=== PATIENT | male | born 1955 | race Caucasian/White ===

== ENCOUNTER 2016-06-23 13:37 | Inpatient (IN) | payer OTHER ==
[~2016-06-23] VITALS: Ht 175.3 cm; Wt 84.1 kg
[2016-06-23 14:12] LABS: HEMOGLOBIN 15.7 gm/dl (14.0-17.5); RED BLOOD COUNT 5.05 M/UL (4.20-5.50); WHITE BLOOD COUNT 7.9 K/UL (4.5-11.0)
[2016-06-23 14:43] LABS: BUN/CREATININE RATIO 14 (0-10)
[2016-06-23] MEDS ORDERED: COMBIVENT0.074 GM/I INH (18:18)
[2016-06-23] MEDS ORDERED: TRAMADOL HCL50 MG PO (18:18)
[2016-06-23] MEDS ORDERED: PLAVIX 75 MG TA75 MG PO (18:19)
[2016-06-23] MEDS ORDERED: NEURONTIN 400400 MG PO (18:19)
[2016-06-23] MEDS ORDERED: LIPITOR TAB 2020 MG PO (18:19)
[2016-06-23] MEDS ORDERED: FENOFIBRATE200 MG PO (18:21)
[2016-06-23] MEDS ORDERED: CARDIZEM120 MG PO (18:21)
[2016-06-23] MEDS ORDERED: LISINOPRIL20 MG PO (18:22)
[2016-06-23] MEDS ORDERED: IMDUR ER TAB 6060 MG PO (18:22)
[2016-06-23] MEDS ORDERED: PROTONIX40 MG PO (18:23)
[2016-06-23] MEDS ORDERED: CYMBALTA60 MG PO (18:24)
[2016-06-23] MEDS ORDERED: INVOKANA100 MG PO (18:24)
[2016-06-23] MEDS ORDERED: CLARITIN 10MG T10 MG PO (18:25)
[2016-06-23] MEDS ORDERED: LANTUS100 UNIT/1 SQ (18:25)
[2016-06-23] MEDS ORDERED: TOPROL XL 50 MG50 MG PO (18:26)
[2016-06-23] MEDS ORDERED: REMERON30 MG PO (18:26)
[2016-06-23] MEDS ORDERED: NITRO-DUR 0.4 MG1 EA TD (18:27)
[2016-06-23] MEDS ORDERED: LORAZEPAM1 MG PO (18:28)
[2016-06-23] MEDS ORDERED: MECLIZINE HCL12.5 MG PO (18:28)
[2016-06-24 02:35] LABS: HEMOGLOBIN 14.8 gm/dl (14.0-17.5); RED BLOOD COUNT 4.72 M/UL (4.20-5.50); WHITE BLOOD COUNT 7.5 K/UL (4.5-11.0)
[2016-06-24 03:26] LABS: BUN/CREATININE RATIO 19 (0-10)
[2016-06-24 16:52] LABS: RED BLOOD COUNT 4.85 M/UL (4.20-5.50); WHITE BLOOD COUNT 8.6 K/UL (4.5-11.0)
[2016-06-24 17:14] LABS: BUN/CREATININE RATIO 18 (0-10)
[2016-06-25 04:14] LABS: HEMOGLOBIN 15.3 gm/dl (14.0-17.5); RED BLOOD COUNT 4.94 M/UL (4.20-5.50); WHITE BLOOD COUNT 9.2 K/UL (4.5-11.0)
[2016-06-25 04:37] LABS: BUN/CREATININE RATIO 20 (0-10)
[2016-06-25] MEDS ORDERED: ASPIR 8181 MG PO (09:12)
[2016-06-25] MEDS ORDERED: BRILINTA90 MG PO (09:19)
[2016-06-25] MEDS ORDERED: ZESTRIL20 MG PO (11:01)
[2016-08-18] MEDS ORDERED: LIORESAL TAB 1010 MG PO (07:55)
[2016-08-18] MEDS ORDERED: PLAVIX75 MG PO (07:56)
[2016-08-18] MEDS ORDERED: BUSPAR 5MG TABLE5 MG PO (07:56)
[2016-08-18] MEDS ORDERED: VENTOLIN/PROVE0.5 ML INH (07:57)
[2016-08-18] MEDS ORDERED: NITROSTAT0.4 MG SL (07:57)
== END 2016-06-25 11:53 | disposition home or self-care (01) | DRG 247 ==
LOC: ER1 13:37 → ZEROF 15:33 → PROG CARE 16:56
PROVIDERS: Family Medicine; Internal Medicine; ADMIT Emergency Medicine
PROC: 027034Z Dilation of Coronary Artery, One Artery with Drug-eluting Intraluminal Device, Percutaneous Approach (ICD-10-PCS; principal; 2016-06-24)
PROC: 4A023N7 Measurement of Cardiac Sampling and Pressure, Left Heart, Percutaneous Approach (ICD-10-PCS; principal; 2016-06-24)
PROC: B2111ZZ Fluoroscopy of Multiple Coronary Arteries using Low Osmolar Contrast (ICD-10-PCS; principal; 2016-06-24)
DX: I21.4 Non-ST elevation (NSTEMI) myocardial infarction (principal); I25.110 Atherosclerotic heart disease of native coronary artery with unstable angina pectoris; E11.9 Type 2 diabetes mellitus without complications; I10 Essential (primary) hypertension; J44.9 Chronic obstructive pulmonary disease, unspecified; E78.5 Hyperlipidemia, unspecified; M19.90 Unspecified osteoarthritis, unspecified site; K76.0 Fatty (change of) liver, not elsewhere classified; G89.29 Other chronic pain; M54.5 Low back pain; M25.572 Pain in left ankle and joints of left foot; M10.9 Gout, unspecified; G62.9 Polyneuropathy, unspecified; G47.30 Sleep apnea, unspecified; K31.84 Gastroparesis; F17.210 Nicotine dependence, cigarettes, uncomplicated; J45.909 Unspecified asthma, uncomplicated; K21.9 Gastro-esophageal reflux disease without esophagitis; M24.812 Other specific joint derangements of left shoulder, not elsewhere classified; Z72.3 Lack of physical exercise; Z95.1 Presence of aortocoronary bypass graft; Z86.73 Personal history of transient ischemic attack (TIA), and cerebral infarction without residual deficits; Z95.5 Presence of coronary angioplasty implant and graft; Z79.84 Long term (current) use of oral hypoglycemic drugs; Z79.4 Long term (current) use of insulin; Z79.899 Other long term (current) drug therapy; Z79.01 Long term (current) use of anticoagulants; Z79.51 Long term (current) use of inhaled steroids; Z82.49 Family history of ischemic heart disease and other diseases of the circulatory system; Z80.0 Family history of malignant neoplasm of digestive organs; Z86.010 Personal history of colon polyps
CPT/HCPCS: ECHO; 36415; 71010; 80048; 80053; 80061; 82550; 82553; 82962; 83874; 84484; 85025; 85027; 85347; 85610; 85730; 93005; 93306; 94664; 99285; C1725; C1769; C1874; C1887; C1894; C9600; J1644; J2250; J3010; J7030; Q9963

== ENCOUNTER → 2016-07-29 | Outpatient (CLI) | payer OTHER ==
[~2016-07-29] MED LIST: ASPIR 8181 MG PO; BRILINTA90 MG PO; BUSPAR 5MG TABLE5 MG PO; CARDIZEM120 MG PO; CLARITIN 10MG T10 MG PO; COMBIVENT0.074 GM/I INH; CYMBALTA60 MG PO; FENOFIBRATE200 MG PO; IMDUR ER TAB 6060 MG PO; INVOKANA100 MG PO; LANTUS100 UNIT/1 SQ; LIORESAL TAB 1010 MG PO; LIPITOR TAB 2020 MG PO; LISINOPRIL20 MG PO; LORAZEPAM1 MG PO; MECLIZINE HCL12.5 MG PO; NEURONTIN 400400 MG PO; NITRO-DUR 0.4 MG1 EA TD; NITROSTAT0.4 MG SL; PLAVIX 75 MG TA75 MG PO; PLAVIX75 MG PO; PROTONIX40 MG PO; REMERON30 MG PO; TOPROL XL 50 MG50 MG PO; TRAMADOL HCL50 MG PO; VENTOLIN/PROVE0.5 ML INH; ZESTRIL20 MG PO
== END ==
LOC: HEART 5 07-08 09:00
DX: I25.10 Atherosclerotic heart disease of native coronary artery without angina pectoris (principal); I20.9 Angina pectoris, unspecified
CPT/HCPCS: 78452; A9502; J2785

== ENCOUNTER → 2020-03-26 | Outpatient (CLI) | payer OTHER ==
[~2020-03-26] MED LIST changes: +ABILIFY 2 MG TAB2 MG PO; +ALLOPURINOL100 MG PO; +ANORO ELLIPTA1 EACH INH; +ASPIRIN CHEWABL81 MG PO; +ATARAX PO; +ATORVASTATIN CA80 MG PO; +AVODART 0.5 MG0.5 MG PO; +BEVESPI INH; +CARDIZEM CD240 MG PO; -CARDIZEM120 MG PO; +CHANTIX PO; +CLARITIN10 MG PO; +DEPAKOTE250 MG PO; +DULOXETINE HCL20 MG PO; +ECOTRIN81 MG PO; +FLOMAX0.4 MG PO; +HYDROXYZINE PAM50 MG PO; +ISOSORBIDE MONO60 MG PO; +LACTULOSE PO; +LANTUS SOL100 UNIT/1 SC; +LASIX20 MG PO; +LIPITOR40 MG PO; +METOPROLOL TART25 MG PO; +MIRALAX17 GM PO; +MITIGARE0.6 MG PO; +NOVOLOG FL100 UNIT/1 INJ; +NOVOLOG FL100 UNIT/1 SQ; +PLETAL 100 MG100 MG PO; +PRINIVIL20 MG PO; +PROAIR HFA8.5 GM INH; +RANEXA1000 MG PO; +RANEXA500 MG PO; +STIOLTO RESPIMAT INH; +SYMBICORT 160-1 INHA INH; +SYMBICORT 16010.2 GM INH; +ULTRAM50 MG PO; +VOLTAREN100 GM TOP; +ZETIA 10 MG TAB10 MG PO; +ZETIA10 MG PO
[2020-03-26 10:08] LABS: BUN/CREATININE RATIO 15 (0-10)
[2020-03-31 11:10] LABS: CHOLESTEROL, TOTAL 194 mg/dL (100-199); HDL SIZE 8.2 nm (>=9.2); HDL-C 36 mg/dL (>39); HDL-P (TOTAL) 22.8 umol/L (>=30.5); LARGE HDL-P <1.3 umol/L (>=4.8); LARGE VLDL-P 6.9 nmol/L (<=2.7); LDL SIZE 21.2 nm (>20.5); LDL SIZE 21.2 nm (>=20.8); LDL-C 128 mg/dL (0-99); LDL-P 1346 nmol/L (<1000); LP-IR SCORE 73 (<=45); SMALL LDL-P 396 nmol/L (<=527); TRIGLYCERIDES 170 mg/dL (0-149)
== END ==
LOC: LAB 09:08
PROVIDERS: Emergency Medicine
DX: E11.65 Type 2 diabetes mellitus with hyperglycemia (principal); E78.2 Mixed hyperlipidemia; I10 Essential (primary) hypertension; D50.8 Other iron deficiency anemias
CPT/HCPCS: 36415; 80053; 83036; 84443; 84550

== ENCOUNTER → 2020-04-03 | Day surgery (SDC) | payer OTHER | END | disposition home or self-care (01) | LOC: OR 07:22 | DX: Z12.11 Encounter for screening for malignant neoplasm of colon (principal); K59.00 Constipation, unspecified; I10 Essential (primary) hypertension; E78.5 Hyperlipidemia, unspecified; K21.9 Gastro-esophageal reflux disease without esophagitis; K27.9 Peptic ulcer, site unspecified, unspecified as acute or chronic, without hemorrhage or perforation; E11.9 Type 2 diabetes mellitus without complications; Z86.010 Personal history of colon polyps; Z80.0 Family history of malignant neoplasm of digestive organs; F17.210 Nicotine dependence, cigarettes, uncomplicated; Z82.49 Family history of ischemic heart disease and other diseases of the circulatory system | CPT/HCPCS: 82962; J2704; J7040 ==

== ENCOUNTER → 2020-07-22 | Outpatient (CLI) | payer OTHER | LOC: HEART 5 07:58 | DX: I20.9 Angina pectoris, unspecified (principal); I25.10 Atherosclerotic heart disease of native coronary artery without angina pectoris | CPT/HCPCS: 78452; 93306; A9502; J2785 ==

== ENCOUNTER → 2020-09-09 | Outpatient (CLI) | payer OTHER ==
[2020-09-09 13:33] LABS: HEMOGLOBIN 12.4 gm/dl (14.0-17.5); RED BLOOD COUNT 5.12 M/UL (4.20-5.50); WHITE BLOOD COUNT 7.8 K/UL (4.5-11.0)
[2020-09-09 13:45] LABS: BUN/CREATININE RATIO 12 (0-10)
[2020-09-11 12:15] LABS: CHOLESTEROL, TOTAL 115 mg/dL (100-199); HDL SIZE 8.8 nm (>=9.2); HDL-C 35 mg/dL (>39); HDL-P (TOTAL) 27.1 umol/L (>=30.5); LARGE HDL-P 2.2 umol/L (>=4.8); LARGE VLDL-P 6.6 nmol/L (<=2.7); LDL SIZE 19.9 nm (>20.5); LDL SIZE 19.9 nm (>=20.8); LDL-C 55 mg/dL (0-99); LDL-P 717 nmol/L (<1000); LP-IR SCORE 73 (<=45); SMALL LDL-P 454 nmol/L (<=527); TRIGLYCERIDES 145 mg/dL (0-149); VLDL SIZE 54.7 nm (<=46.6)
== END ==
LOC: LAB 10:11
PROVIDERS: Emergency Medicine
DX: E11.65 Type 2 diabetes mellitus with hyperglycemia (principal); E78.2 Mixed hyperlipidemia; I10 Essential (primary) hypertension; I25.10 Atherosclerotic heart disease of native coronary artery without angina pectoris; E11.42 Type 2 diabetes mellitus with diabetic polyneuropathy
CPT/HCPCS: 36415; 80053; 80061; 83036; 83704; 84550; 85025

== ENCOUNTER → 2021-04-10 | Outpatient (CLI) | payer OTHER ==
[2021-04-10 09:58] LABS: HEMOGLOBIN 13.7 gm/dl (14.0-17.5); RED BLOOD COUNT 5.16 M/UL (4.20-5.50); WHITE BLOOD COUNT 5.7 K/UL (4.5-11.0)
[2021-04-10 10:20] LABS: BUN/CREATININE RATIO 8 (0-10)
[2021-04-11 10:12] LABS: CREATININE, URINE 84.7 mg/dL (Not Estab.)
== END ==
LOC: LAB 09:09
PROVIDERS: Emergency Medicine
DX: Z12.5 Encounter for screening for malignant neoplasm of prostate (principal); I25.10 Atherosclerotic heart disease of native coronary artery without angina pectoris; I10 Essential (primary) hypertension; E78.2 Mixed hyperlipidemia; E11.42 Type 2 diabetes mellitus with diabetic polyneuropathy; M51.36 Other intervertebral disc degeneration, lumbar region; M15.8 Other polyosteoarthritis
CPT/HCPCS: 36415; 80053; 80307; 82043; 82570; 83036; 84443; 84550; 85025; G0103

== ENCOUNTER → 2021-06-23 | Outpatient (CLI) | payer OTHER ==
[2021-06-23 10:30] LABS: HEMOGLOBIN 15.3 gm/dl (14.0-17.5); RED BLOOD COUNT 5.52 M/UL (4.20-5.50); WHITE BLOOD COUNT 7.7 K/UL (4.5-11.0)
[2021-06-23 10:57] LABS: BUN/CREATININE RATIO 13 (0-10)
== END ==
LOC: LAB 09:55
PROVIDERS: Emergency Medicine
DX: K52.9 Noninfective gastroenteritis and colitis, unspecified (principal); R10.817 Generalized abdominal tenderness; R11.10 Vomiting, unspecified
CPT/HCPCS: 36415; 80053; 83690; 85025

== ENCOUNTER → 2021-08-11 | Outpatient (CLI) | payer OTHER | LOC: CT 14:00 | DX: G44.59 Other complicated headache syndrome (principal); R42 Dizziness and giddiness; R11.11 Vomiting without nausea | CPT/HCPCS: 70450 ==

== ENCOUNTER 2021-08-27 13:43 | Emergency (ER) | payer OTHER ==
[2021-08-27 15:55] LABS: HEMOGLOBIN 14.9 gm/dl (14.0-17.5); RED BLOOD COUNT 5.18 M/UL (4.20-5.50); WHITE BLOOD COUNT 6.9 K/UL (4.5-11.0)
[2021-08-27 16:17] LABS: BUN/CREATININE RATIO 13 (0-10)
[2021-08-27] MEDS ORDERED: BACTRIM DS TAB1 EACH PO (17:06)
[2021-08-27] MEDS ORDERED: CEPHALEXIN500 M1 PO (17:06)
[2021-08-27] MEDS ORDERED: MEDROL4 MG PO (17:06)
== END 2021-08-27 17:32 | disposition home or self-care (01) ==
LOC: ER1 13:43
PROVIDERS: Preventive Medicine Occupational Medicine
DX: L03.211 Cellulitis of face (principal); I10 Essential (primary) hypertension; J44.9 Chronic obstructive pulmonary disease, unspecified; E11.9 Type 2 diabetes mellitus without complications
CPT/HCPCS: 70486; 80048; 85025; 85652; 86140; 96374; 99284; J2930